=== PATIENT | male | born 1955 | race Caucasian/White ===

== ENCOUNTER → 2018-01-03 | Outpatient (CLI) | payer OTHER ==
[~2018-01-03] MED LIST: CARI350T14 PO; FEBU40TA PO; HYDR12.53 PO; HYDR25TA6 PO; LISI40TA PO; METO-95 PO; NIFE60TA11 PO; PROP20TA PO; TRIA0.2576 PO
== END | disposition home or self-care (01) ==
LOC: PETCFH 07:42
PROVIDERS: ATTEND Family Medicine
DX: C64.9 Malignant neoplasm of unspecified kidney, except renal pelvis (principal); R91.1 Solitary pulmonary nodule
CPT/HCPCS: 78815; A9552

== ENCOUNTER 2019-08-07 08:45 | Outpatient (CLI) | payer OTHER ==
[~2019-08-07 08:45] MED LIST changes: +HYDR12.517 PO; -HYDR12.53 PO
== END 2019-08-07 23:59 | disposition home or self-care (01) ==
LOC: PETCFH 08:45
PROVIDERS: ATTEND Student in an Organized Health Care Education/Training Program
DX: N28.89 Other specified disorders of kidney and ureter (principal); R91.1 Solitary pulmonary nodule; R59.9 Enlarged lymph nodes, unspecified
CPT/HCPCS: 78815; A9552

== ENCOUNTER → 2019-09-11 | Outpatient (CLI) | payer OTHER ==
[~2019-09-11] MED LIST changes: +CLIN40CR2 TP; +CLON1PAT2 TD; +FEBU80TA2 PO; +LINA290C PO; +LOSA100T14 PO; +MELA1TAB15 PO; +VALA500T4 PO
[2019-09-11 10:26] LABS: BASOPHILS # (AUTO) 0.04 x10^3/uL (0-0.1); BASOPHILS % (AUTO) 1 % (0-1); EOSINOPHILS # (AUTO) 0.17 x10^3/uL (0-0.4); EOSINOPHILS % (AUTO) 2 % (1-7); LYMPHOCYTES # (AUTO) 1.34 x10^3/uL (1-3.4); LYMPHOCYTES % (AUTO) 17 % (22-44); MD NO; MEAN CORPUSCULAR HEMOGLOBIN 31.3 pg (27.5-34.5); MEAN CORPUSCULAR HGB CONC 33.7 g/dL (33.2-36.2); MEAN CORPUSCULAR VOLUME 93.1 fL (81-97); MEAN PLATELET VOLUME 9.1 fL (7.4-10.4); MONOCYTES # (AUTO) 0.65 x10^3/uL (0.2-0.8); MONOCYTES % (AUTO) 8 % (2-9); NEUTROPHILS # (AUTO) 5.93 x10^3/uL (1.8-6.8); NEUTROPHILS % (AUTO) 73 % (42-75); PLATELET COUNT 168 x10^3/uL (130-400); RED BLOOD COUNT 5.21 x10^6/uL (4.38-5.82); RED CELL DISTRIBUTION WIDTH 13.6 % (9.4-14.8)
[2019-09-11 10:34] LABS: INTERNATIONAL NORMALIZED RATIO 0.93 (0.93-1.1); PROTHROMBIN TIME 9.8 Seconds (9.6-11.5)
[2019-09-11 10:37] LABS: ALANINE AMINOTRANSFERASE 34 U/L (12-78); ALBUMIN 4.1 g/dL (3.4-5.0); ANION GAP 9 mmol/L (5-15); CALCIUM 9.2 mg/dL (8.5-10.1); CHLORIDE 111 mmol/L (98-107); CREATININE 1.45 mg/dL (0.7-1.3)
[2019-09-11 10:39] LABS: ALKALINE PHOSPHATASE 99 U/L (45-117); BILIRUBIN,TOTAL 0.5 mg/dL (0.2-1.0); TOTAL PROTEIN 8.2 g/dL (6.4-8.2)
== END | disposition home or self-care (01) ==
LOC: STAR 09:09
PROVIDERS: ATTEND Internal Medicine Critical Care Medicine
DX: Z01.818 Encounter for other preprocedural examination (principal); R91.1 Solitary pulmonary nodule
CPT/HCPCS: 36415; 80053; 85025; 85610; 85730; 93005

== ENCOUNTER 2019-09-17 12:05 | Day surgery (SDC) | payer OTHER ==
[~2019-09-17] VITALS: Ht 180.3 cm; Wt 112.2 kg
[2019-09-17 12:36] VITALS: BP 150/81
[2019-09-17] MEDS ORDERED: SODIUM CHLORIDE 0.9% 1,000 ML IV SCH (12:40)
[2019-09-17] MEDS ORDERED: CHLORHEXIDINE 15 ML UDC MM ONE (13:00)
[2019-09-17] MEDS ORDERED: MIDAZOLAM 1 MG/ML, 2ML ONE (13:29)
[2019-09-17] MEDS ORDERED: FENTANYL PF 250 MCG/5ML ONE (13:29)
[2019-09-17] MEDS ORDERED: ROCURONIUM 10MG/ML,5ML ONE (13:30)
[2019-09-17] MEDS ORDERED: DEXAMETHASONE 4 MG/ML, 1ML ONE ×2 (14:02)
[2019-09-17] MEDS ORDERED: HYDROmorphone 1 MG/ML, 1ML INJ IVPush PRN (14:30)
[2019-09-17] MEDS ORDERED: LABETALOL 5MG/ML, 20ML IV PRN (14:30)
[2019-09-17] MEDS ORDERED: hydrALAzine 20 MG/ML, 1ML IV PRN (14:30)
[2019-09-17] MEDS ORDERED: OXYcodone 5 MG/5 ML ORAL.SOL UDC PO PRN (14:30)
[2019-09-17] MEDS ORDERED: FENTANYL PF 100 MCG/2ML IV PRN (14:30)
[2019-09-17] MEDS ORDERED: ACETAMINOPHEN 325 MG TABLET PO PRN (14:30)
[2019-09-17] MEDS ORDERED: PROMETHAZINE 25 MG/ML, 1ML IVPush PRN (14:30)
[2019-09-17] MEDS ORDERED: ONDANSETRON 2MG/ML, 2ML IVPush PRN (14:30)
[2019-09-17] MEDS ORDERED: SUCCINYLCHOLINE 20 MG/ML, 10ML ONE (15:17)
[2019-09-17] MEDS ORDERED: PROPOFOL 10 MG/ML, 20ML ONE (15:17)
[2019-09-17] MEDS ORDERED: ONDANSETRON 2MG/ML, 2ML ONE (15:18)
[2019-09-17] MEDS ORDERED: hydrALAzine 20 MG/ML, 1ML ONE (15:53)
== END 2019-09-17 17:00 | disposition home or self-care (01) ==
LOC: OUT 12:05
PROVIDERS: ATTEND Internal Medicine Critical Care Medicine
DX: R59.0 Localized enlarged lymph nodes (principal); I12.9 Hypertensive chronic kidney disease with stage 1 through stage 4 chronic kidney disease, or unspecified chronic kidney disease; N18.3 Chronic kidney disease, stage 3 (moderate); M10.9 Gout, unspecified; E66.9 Obesity, unspecified; Z68.35 Body mass index [BMI] 35.0-35.9, adult; Z79.899 Other long term (current) drug therapy; Z85.528 Personal history of other malignant neoplasm of kidney; Z85.118 Personal history of other malignant neoplasm of bronchus and lung; Z87.891 Personal history of nicotine dependence; Z90.5 Acquired absence of kidney; Z90.2 Acquired absence of lung [part of]; Z82.61 Family history of arthritis; Z82.49 Family history of ischemic heart disease and other diseases of the circulatory system
CPT/HCPCS: 31652; 71045; 88112; 88172; 88173; 88177; 88305; J0330; J0360; J1100; J2250; J2405; J2704; J3010; J7030; 31624; 31629

== ENCOUNTER → 2019-11-12 | Outpatient (CLI) | payer OTHER ==
[~2019-11-12] MED LIST changes: +OXYM15SP8 NAS
[2019-11-12 15:20] LABS: BASOPHILS # (AUTO) 0.05 x10^3/uL (0-0.1); BASOPHILS % (AUTO) 1 % (0-1); EOSINOPHILS # (AUTO) 0.17 x10^3/uL (0-0.4); EOSINOPHILS % (AUTO) 2 % (1-7); LYMPHOCYTES # (AUTO) 1.45 x10^3/uL (1-3.4); LYMPHOCYTES % (AUTO) 20 % (22-44); MD NO; MEAN CORPUSCULAR HEMOGLOBIN 30.5 pg (27.5-34.5); MEAN CORPUSCULAR HGB CONC 32.9 g/dL (33.2-36.2); MEAN CORPUSCULAR VOLUME 92.5 fL (81-97); MEAN PLATELET VOLUME 9.9 fL (7.4-10.4); MONOCYTES # (AUTO) 0.52 x10^3/uL (0.2-0.8); MONOCYTES % (AUTO) 7 % (2-9); NEUTROPHILS # (AUTO) 5.24 x10^3/uL (1.8-6.8); NEUTROPHILS % (AUTO) 71 % (42-75); PLATELET COUNT 191 x10^3/uL (130-400); RED BLOOD COUNT 4.74 x10^6/uL (4.38-5.82); RED CELL DISTRIBUTION WIDTH 13.3 % (9.4-14.8)
[2019-11-12 15:34] LABS: ALANINE AMINOTRANSFERASE 34 U/L (12-78); ALBUMIN 3.8 g/dL (3.4-5.0); ANION GAP 7 mmol/L (5-15); CHLORIDE 109 mmol/L (98-107); CREATININE 1.65 mg/dL (0.7-1.3)
[2019-11-12 15:36] LABS: ALKALINE PHOSPHATASE 87 U/L (45-117); BILIRUBIN,TOTAL 0.4 mg/dL (0.2-1.0); TOTAL PROTEIN 7.6 g/dL (6.4-8.2)
== END | disposition home or self-care (01) ==
LOC: STAR 13:42
PROVIDERS: ATTEND Thoracic Surgery (Cardiothoracic Vascular Surgery)
DX: Z01.818 Encounter for other preprocedural examination (principal)
CPT/HCPCS: 36415; 80053; 85025

== ENCOUNTER 2019-11-19 06:22 | Inpatient (IN) | payer OTHER ==
[~2019-11-19] VITALS: Ht 180.3 cm; Wt 113.0 kg
[2019-11-19] MEDS ORDERED: GABAPENTIN 300 MG CAPSULE PO STA (06:25)
[2019-11-19] MEDS ORDERED: FENTANYL PF 250 MCG/5ML ONE (06:29)
[2019-11-19] MEDS ORDERED: MIDAZOLAM 1 MG/ML, 2ML ONE (06:29)
[2019-11-19] MEDS ORDERED: ACETAMINOPHEN 500 MG TABLET PO ONE (06:30)
[2019-11-19] MEDS ORDERED: LACTATED RINGERS 1,000 ML IV SCH ×2 (06:39→09:00)
[2019-11-19] MEDS ORDERED: BUPIVACAINE/EPI 0.5% 1:200K ONE (06:45)
[2019-11-19] MEDS ORDERED: morphine SULFATE 10 MG/ML, 1ML IVPush PRN ×2 (07:00→09:00)
[2019-11-19] MEDS ORDERED: ONDANSETRON 2MG/ML, 2ML IVPush PRN ×2 (07:00→09:00)
[2019-11-19] MEDS ORDERED: CHLORHEXIDINE 15 ML UDC MM ONE (07:00)
[2019-11-19] MEDS ORDERED: OXYcodone 5 MG/5 ML ORAL.SOL UDC PO PRN (07:00)
[2019-11-19] MEDS ORDERED: hydrALAzine 20 MG/ML, 1ML IV PRN (07:00)
[2019-11-19] MEDS ORDERED: MEPERIDINE/PF 25MG/0.5ML IVPush PRN (07:00)
[2019-11-19] MEDS ORDERED: HYDROmorphone 1 MG/ML, 1ML INJ IVPush PRN (07:00)
[2019-11-19] MEDS ORDERED: LABETALOL 5MG/ML, 20ML IV PRN (07:00)
[2019-11-19] MEDS ORDERED: FENTANYL PF 100 MCG/2ML IV PRN (07:00)
[2019-11-19] MEDS ORDERED: ONDANSETRON 2MG/ML, 2ML ONE ×2 (08:14)
[2019-11-19] MEDS ORDERED: GLYCOPYRROLATE 0.2MG/1ML, 5ML ONE ×2 (08:14)
[2019-11-19] MEDS ORDERED: ROCURONIUM 10MG/ML,5ML ONE ×2 (08:14)
[2019-11-19] MEDS ORDERED: DEXAMETHASONE 4 MG/ML, 1ML ONE ×2 (08:14)
[2019-11-19] MEDS ORDERED: NEOSTIGMINE 1 MG/ML, 10ML ONE ×2 (08:14)
[2019-11-19] MEDS ORDERED: SUCCINYLCHOLINE 20 MG/ML, 10ML ONE (08:14)
[2019-11-19] MEDS ORDERED: CEFAZOLIN 1,000 MG ONE ×2 (08:14)
[2019-11-19] MEDS ORDERED: PROPOFOL 10 MG/ML, 20ML ONE ×2 (08:14)
[2019-11-19] MEDS ORDERED: SUGAMMADEX 200 MG/2 ML IVPush ONE (08:46)
[2019-11-19] MEDS ORDERED: MEPERIDINE/PF 25MG/ML,1ML ONE (08:59)
[2019-11-19] MEDS ORDERED: hydrALAzine 20 MG/ML, 1ML IVPush PRN (09:00)
[2019-11-19] MEDS ORDERED: FAMOTIDINE 20 MG/2 ML IVPush ONE (09:00)
[2019-11-19] MEDS ORDERED: ACETAMINOPHEN 325 MG TABLET PO PRN (09:00)
[2019-11-19] MEDS ORDERED: LORazepam 0.5MG TABLET PO PRN (09:00)
[2019-11-19] MEDS ORDERED: DIPHENHYDRAMINE 25 MG CAPSULE PO PRN (09:00)
[2019-11-19] MEDS ORDERED: LORazepam 2 MG/ML, 1ML IVPush PRN (09:00)
[2019-11-19] MEDS ORDERED: DIPHENHYDRAMINE 50 MG/ML, 1ML IVPush PRN (09:00)
[2019-11-19] MEDS ORDERED: ENALAPRILAT 1.25 MG/ML, 2ML IVPush PRN (09:00)
[2019-11-19] MEDS ORDERED: HYDROcodone/APAP 7.5-325MG/15ML UDC ONE (09:27)
[2019-11-19] MEDS ORDERED: HYDROcodone/APAP 7.5-325MG/15ML UDC PO PRN (10:00)
[2019-11-19] MEDS: TEMPLATE NON-FORMULARY MED. (Linaclotide** (Linzess**) 290 MCG) HOMEMEDPO SCH (11:46)
[2019-11-19] MEDS: FEBUXOSTAT HOMEMEDPO SCH (11:47)
[2019-11-19] MEDS: METOPROLOL SUCCINATE 100 MG TAB.ER.24H PO SCH (11:47)
[2019-11-19 11:48] VITALS: BP 130/60
[2019-11-19] MEDS: niFEDipine ER 60 MG TABLET.ER PO SCH ×2 (11:48→21:00)
[2019-11-19 14:10] VITALS: BP 123/68
[2019-11-19 18:47] VITALS: BP 144/70
[2019-11-19] MEDS: HYDROcodone/APAP 5/325 TABLET PO PRN (19:42)
[2019-11-19] MEDS: FAMOTIDINE 20 MG TABLET PO SCH (19:42)
[2019-11-20 00:26] VITALS: BP 131/69
[2019-11-20] MEDS: HYDROcodone/APAP 5/325 TABLET PO PRN ×3 (01:31→12:38)
[2019-11-20 05:46] LABS: BASOPHILS # (AUTO) 0.04 x10^3/uL (0-0.1); BASOPHILS % (AUTO) 0 % (0-1); EOSINOPHILS % (AUTO) 1 % (1-7); LYMPHOCYTES # (AUTO) 1.68 x10^3/uL (1-3.4); LYMPHOCYTES % (AUTO) 16 % (22-44); MD NO; MEAN CORPUSCULAR HEMOGLOBIN 30.6 pg (27.5-34.5); MEAN CORPUSCULAR HGB CONC 33.3 g/dL (33.2-36.2); MEAN PLATELET VOLUME 9.7 fL (7.4-10.4); MONOCYTES # (AUTO) 1.04 x10^3/uL (0.2-0.8); MONOCYTES % (AUTO) 10 % (2-9); NEUTROPHILS # (AUTO) 7.96 x10^3/uL (1.8-6.8); NEUTROPHILS % (AUTO) 74 % (42-75); PLATELET COUNT 166 x10^3/uL (130-400); RED BLOOD COUNT 4.01 x10^6/uL (4.38-5.82); RED CELL DISTRIBUTION WIDTH 13.2 % (9.4-14.8)
[2019-11-20 05:47] LABS: ANION GAP 7 mmol/L (5-15); CALCIUM 8.4 mg/dL (8.5-10.1); CHLORIDE 107 mmol/L (98-107)
[2019-11-20 05:50] LABS: CREATININE 1.36 mg/dL (0.7-1.3)
[2019-11-20 06:34] VITALS: BP 144/82
[2019-11-20] MEDS: FEBUXOSTAT HOMEMEDPO SCH (08:14)
[2019-11-20] MEDS: FAMOTIDINE 20 MG TABLET PO SCH (08:15)
[2019-11-20] MEDS: TEMPLATE NON-FORMULARY MED. (Linaclotide** (Linzess**) 290 MCG) HOMEMEDPO SCH (08:15)
[2019-11-20] MEDS: METOPROLOL SUCCINATE 100 MG TAB.ER.24H PO SCH (08:16)
[2019-11-20] MEDS: niFEDipine ER 60 MG TABLET.ER PO SCH (08:16)
[2019-11-20] MEDS ORDERED: ENOXAPARIN 40 MG/0.4 ML SQ SCH (09:00)
[2019-11-20] MEDS ORDERED: LOSARTAN 100 MG TAB PO SCH (09:00)
[2019-11-20] MEDS ORDERED: HYDR-3240 PO (12:12)
[2019-11-20 13:10] VITALS: BP 127/63
== END 2019-11-20 13:25 | disposition home or self-care (01) | DRG 165 ==
LOC: ORIP 06:22 → 4NE 11:16 → DCLOUNGE 11-20 13:14
PROVIDERS: ADMIT Thoracic Surgery (Cardiothoracic Vascular Surgery); ATTEND Thoracic Surgery (Cardiothoracic Vascular Surgery)
PROC: 0BBG4ZZ Excision of Left Upper Lung Lobe, Percutaneous Endoscopic Approach (ICD-10-PCS; 2019-11-19)
PROC: 02B Heart and Great Vessels, Excision (ICD-10-PCS; 2019-11-19)
PROC: 02B Heart and Great Vessels, Excision (ICD-10-PCS; principal; 2019-11-19 07:30)
DX: R91.8 Other nonspecific abnormal finding of lung field (principal); Q21.4 Aortopulmonary septal defect; Z85.528 Personal history of other malignant neoplasm of kidney; Z20.828 Contact with and (suspected) exposure to other viral communicable diseases
CPT/HCPCS: 36415; J3490; 71045; 80048; 85014; 85018; 85025; 86850; 86900; 87635; 88305; 88307; C1729; G0378; J0690; J1100; J1650; J2175; J2250; J2405; J2704; J2710; J3010; C1760; J0330; J7120